=== PATIENT | female | born 1965 | race African-American/Black ===

== ENCOUNTER 2016-09-12 05:53 | Inpatient (IN) | payer OTHER ==
[2016-09-11 13:30] LABS: BASOPHILS # (AUTO) 0.2 K/uL (0.00-0.22); EOSINOPHILS # (AUTO) 0.1 K/uL (0-0.4); HEMOGLOBIN 14.1 g/dL (12.0-16.0); RED CELL DISTRIBUTION WIDTH 12.1 % (11.6-13.7)
[2016-09-11 13:33] LABS: BASOPHILS % (AUTO) 3.6 % (0.0-2.0); EOSINOPHILS % (AUTO) 1.2 % (0.0-4.0); HEMATOCRIT 45.1 % (36-48); LYMPHOCYTES # (AUTO) 2.2 K/uL (2.5-16.5); LYMPHOCYTES % (AUTO) 39.2 % (20.5-51.1); MEAN CORPUSCULAR HEMOGLOBIN 26 pg (27-31); MEAN CORPUSCULAR HGB CONC 31 g/dL (33-37); MEAN CORPUSCULAR VOLUME 85 fL (80-94); MONOCYTES # (AUTO) 0.5 K/uL (0.8-1.0); MONOCYTES % (AUTO) 8.2 % (1.7-9.3); NEUTROPHILS # (AUTO) 2.6 K/uL (1.8-7.7); NEUTROPHILS % (AUTO) 47.8 % (42.2-75.2); PLATELET COUNT (AUTO) 267 K/uL (140-450); RED BLOOD CELL COUNT(AUTO) 5.34 MIL/uL (4.20-5.40); WHITE BLOOD COUNT (AUTO) 5.6 K/uL (4.8-10.8)
[2016-09-11 14:05] LABS: ANION GAP 11.7 (8-16); CALCIUM 10.2 mg/dL (8.5-10.1); CARBON DIOXIDE 33.5 mmol/L (21-32); CREATININE 1.2 mg/dL (0.6-1.3); POTASSIUM 3.2 mmol/L (3.5-5.1); TOTAL BILIRUBIN 0.4 mg/dL (0.0-1.0); TOTAL PROTEIN, SERUM 8.2 g/dL (6.4-8.2)
[~2016-09-12] VITALS: Ht 170.2 cm; Wt 59.0 kg
[2016-09-12] MEDS ORDERED: CLINDAMYCIN 600 MG in DEXTROSE 5% 50 ML IV SCH (06:15)
[2016-09-12] MEDS ORDERED: SEVOFLURANE 250 ML BTL INH ONE (07:55)
[2016-09-12] MEDS ORDERED: MORPHINE SULFATE 4 MG/ML SYR IM/IVP PRN (07:55)
[2016-09-12] MEDS ORDERED: SUCCINYLCHOLINE CHLORIDE 200 MG/10 ML VIAL IVP ONE (07:55)
[2016-09-12] MEDS ORDERED: PROPOFOL 200 MG/20 ML VIAL IV ONE (07:55)
[2016-09-12] MEDS ORDERED: ROCURONIUM 50 MG/5 ML VIAL IV ONE (07:55)
[2016-09-12] MEDS ORDERED: DEXAMETHASONE 4 MG/ML VIAL ONE (07:55)
[2016-09-12] MEDS ORDERED: ONDANSETRON 4 MG/2 ML VIAL ONE (07:55)
[2016-09-12] MEDS ORDERED: BUPIVACAINE-MPF/EPI 0.5% 30 ML VIAL INJ ONE (08:03)
[2016-09-12] MEDS ORDERED: MIDAZOLAM 2 MG/2 ML VIAL ONE (08:05)
[2016-09-12] MEDS ORDERED: fentaNYL 0.05 MG/ML VIAL ONE (08:06)
[2016-09-12] MEDS ORDERED: MEPERIDINE 50 MG/ML SYR ONE (08:06)
--- NOTE | 2016-09-12 08:28 | NUR ---
PATIENT HAS BEEN SCREENED AND CATEGORIZED LOW NUTRITION RISK. PATIENT WILL BE SEEN WITHIN 7 DAYS OF ADMISSION. 09/18/[address]
[2016-09-12] MEDS ORDERED: HYDROmorphone 1 MG/ML AMP IVP PRN (08:30)
[2016-09-12] MEDS ORDERED: ONDANSETRON 4 MG/2 ML VIAL IVP PRN (08:30)
[2016-09-12] MEDS ORDERED: diphenhydrAMINE 50 MG/ML VIAL IVP PRN (08:30)
[2016-09-12] MEDS ORDERED: THROMBIN KIT 20 MU VIAL TP ONE (08:50)
[2016-09-12] MEDS: MEPERIDINE 25 MG/ML SYR IVP PRN ×2 (09:30→09:40)
[2016-09-12] MEDS ORDERED: MEPERIDINE 25 MG/ML SYR ONE ×2 (09:36→09:50)
[2016-09-12 10:25] VITALS: BP 120/76
--- NOTE | 2016-09-12 10:25 | NUR ---
PATIENT ARRIVED ONTO UNIT AFTER HAVING PROCEDURE DONE BY DR Kami BURNETTE AND IS DROWSY. CAM CATHETER IS NOTED WITH RED URINE. IV NOTED ON THE L H WITH IVF'S INFUSING WELL. WHEN ASKED IF SHE WAS IN PAIN PATIENT NODDED AND POINTED TO ABD AND RATES 10/10 SHARP PAIN. WILL MEDICATE WITH PRN PAIN MEDICATION. ABD DRX IS NOTED IN THE LOWER ABD AND IS CLEAN DRY AND INTACT. PATIENT IS AAOX4 AND SHOWS NO S/S OF DISTRESS ON ROOM AIR. MOTHER IS AT BEDSIDE. THE PATIENT AND MOTHER WERE EDUCATED ON THE POC FOR TODAY, CALL LIGHT, RAPID RESPONSE AND VERBALIZED UNDERSTANDING.
--- NOTE | 2016-09-12 10:30 | NUR ---
SPOKE WITH PACU NURSE RON ABOUT POTASSIUM OF 3.2 ON 09/11/16 AND SHE STATES [facility] LAB VALUES FOR POTASSIUM ARE 4.0. LABS FROM [facility] ARE IN CHART.
[2016-09-12] MEDS: LACTATED RINGERS 1,000 ML IV SCH ×2 (11:34→16:46)
--- NOTE | 2016-09-12 11:34 | NUR ---
ADMINISTERED MORPHINE 4 MG IVP FOR PAIN OF 10/10 ABD PAIN AT INCISION SITE. WILL REASSESS IN 30 MIN.
--- NOTE | 2016-09-12 12:04 | NUR ---
PATIENT STATES 9/10 PAIN AT INCISION SITE. PATIENT STATES IT ONLY HELPED A LITTLE BIT. WILL CALL DR. BURNETTE FOR NEW ORDERS OF PRN PAIN MEDICATION.
--- NOTE | 2016-09-12 12:05 | NUR ---
RECEIVED ORDERS OF DILAUDID 1 MG IVP FOR SEVERE PAIN. WILL FOLLOW THROUGH WITH ORDERS.
--- NOTE | 2016-09-12 14:06 | NUR ---
FAXED INITIAL REVIEW TO [facility] [phone] PHONE JORGE [phone]
[2016-09-12 15:27] VITALS: BP 136/80
[2016-09-12] MEDS: HYDROmorphone 1 MG/ML AMP IVP PRN ×3 (15:30→23:11)
--- NOTE | 2016-09-12 15:30 | NUR ---
ADMINISTERED DILAUDID 1 MG IVP FOR 7/10 ABD PAIN AT INCISION SITE. WILL REASSESS IN 30 MIN.
--- NOTE | 2016-09-12 16:00 | NUR ---
PATIENT DENIES PAIN. PATIENT CAM CATHETER HAS MINIMAL DRAINAGE OF RED URINE 50CC'S. DISCONTINUED CAM CATHETER. PATIENT AMB TO RR WITH ASSISTANCE; HOWEVER WAS UNABLE TO VOID. PATIENT IS BACK IN BED AND SHOWS NO S/S OF DISTRESS ON ROOM AIR.
--- NOTE | 2016-09-12 16:30 | NUR ---
SPOKE WITH DR BURNETTE AND ORDERED TO REINSERT CAM CATHETER. WILL FOLLOW THROUGH WITH ORDERS.
--- NOTE | 2016-09-12 17:35 | NUR ---
REINSERTED CAM CATHETER. MINIMAL BLOOD TINGED URINE DRAINED. PATIENT TOLERATED ACTIVITY WELL. WILL CONTINUE TO MONITOR.
--- NOTE | 2016-09-12 18:45 | NUR ---
PATIENT IS C/O PAIN AND PRESSURE AT ABD SITE. PATIENT STATES "I HAVE NOT BEEN ABLE TO URINATE WELL SINCE BEFORE SURGERY." WHEN ASKED IF DR Kami BURNETTE WAS AWARE SHE SAID " YES, I TOLD HIM." THERE IS STILL MINIMAL DRAINAGE IN CAM CATHETER AND NO SIGNIFICANT AMOUNT OF URINE IN BAG. BANG HEIN WAS ASKED TO ASSESS CAM CATHETER. CAM CATHETER WAS ASSESSED BY BANG HEIN RN. CAM IS IN URETHRA HOWEVER BANG CORTEZ DECIDED OKAY TO DISCONTINUE CAM CATHETER. CAM WAS DISCONTINUED. WILL INSERT NEW ONE.
--- NOTE | 2016-09-12 19:54 | NUR ---
PATIENT WAS GIVEN DILAUDID 1 MG IVP FOR 10/10 PAIN. NEW CAM CATHETER WAS INSERTED AND ASSESSED BY BANG CORTEZ. BLADDER SCAN WAS ALSO USED TO ASSESS IF THERE WAS ANY RETAINING URINE. BLADDER SCAN SHOWED 15 ML ONLY. BANG CORTEZ AND ELGIN RN AWARE OF PATIENTS SYMPTOMS AND LACK OF DRAINING OF URINE. ELGIN NIGHT NURSE AWARE AND WILL CALL DR Kami BURNETTE FOR ORDERS REGARDING LACK OF URINE IN CAM CATHETER. PATIENT ALSO STATES NAUSEA, ACID REFLUX, AND NOT BEING ABLE TO PASS GAS. ELGIN SUAREZ IS AWARE. PATIENT REPORT WAS GIVEN AT BEDSIDE. ELGIN IS TO FOLLOW UP WITH CONTINUITY OF CARE.
--- NOTE | 2016-09-12 19:55 | NUR ---
RECD. RESTING IN BED, AWAKE, A/OX4. RESPIRATION EVEN AND UNLABORED. IV OF LR AT 100 ML/HR INFUSING, LEFT AC G20. INCISION IN THE LOWER ABDOMEN COVERED WITH DRESSING, DRY AND INTACT. F/C DRAINING SMALL AMOUNT OF LIGHT REDDISH URINE. WILL INFORM DR. BURNETTE REGARDING DECREASED URINE OUTPUT. ON BILATERAL LEG SEQUENTIALS. PAIN IN THE ABDOMEN, 02/20. WILL CONTINUE TO MONITOR AND WILL MEDICATE ORDERED.
[2016-09-12 20:00] VITALS: BP 144/83
--- NOTE | 2016-09-12 20:00 | NUR ---
Patient's Plan of Care was discussed and reviewed with JAVA WEB ENGINEER: ELGIN Chamberlain
--- NOTE | 2016-09-12 20:20 | NUR ---
SPOKE WITH DR. Lewis BURNETTE, REGARDING PATIENT PROBLEM, ORDERED INCREASE IV TO 300 ML/HR FOR 3 HOURS AND CONTINUE TO MONITOR URINE OUTPUT, MAY DO BLADDER IRRIGATION.
--- NOTE | 2016-09-12 20:25 | NUR ---
BLADDER IRRIGATION WITH CHARGE NURSE SOCORRO DONE, WILL OBSERVE. MOTHER AT THE BEDSIDE.
--- NOTE | 2016-09-12 21:50 | NUR ---
COMPLAINT OF FEELING LIKE ACID REFLUX AND UNABLE TO PASSED GAS, WILL CALL .
[2016-09-12] MEDS: METOCLOPRAMIDE 10 MG/2 ML INJ VIAL IVP PRN (23:10)
[2016-09-12] MEDS: SIMETHICONE 80 MG TAB.CHEW PO PRN (23:27)
--- NOTE | 2016-09-12 23:30 | NUR ---
FLUID BOLUS FINISHED. BLOOD TINGE UA IN THE F/C BAG APPROXIMATELY 150 ML. WILL CONTINUE TO MONITOR FOR OUTPUT. CHARGE NURSE AWARE.
[2016-09-13] VITALS: BP 148/82
--- NOTE | 2016-09-13 | NUR ---
SLEEPING COMFORTABLY IN BED.
[2016-09-13] MEDS: LACTATED RINGERS 1,000 ML IV SCH ×4 (01:11→23:04)
--- NOTE | 2016-09-13 01:30 | NUR ---
COMPLAINT OF BACK PAIN. REPOSITIONED IN BED WITH PILLOWS. FEES BETTER.
[2016-09-13 03:56] VITALS: BP 147/81
[2016-09-13] MEDS: HYDROmorphone 1 MG/ML AMP IVP PRN ×4 (03:59→20:09)
--- NOTE | 2016-09-13 05:13 | NUR ---
EMPTY F/C BAG, ABLE TO OBTAINED 125 ML OF DARK PINKISH URINE. WILL CONTINUE TO MONITOR UA OUTPUT.
--- NOTE | 2016-09-13 07:10 | NUR ---
SPOKE WITH DR. Lewis BURNETTE REGARDING PATIENT MINIMAL OUTPUT FOR THE SHIFT. ORDERED IV LASIX. WILL SEE PATIENT TODAY.
--- NOTE | 2016-09-13 07:15 | NUR ---
CONDITION REMAIN STABLE. ENDORSED TO AM NURSE FOR CONTINUITY OF CARE.
--- NOTE | 2016-09-13 07:16 | NUR ---
PT AWAKE AND ALERT, NO SIGNS OF ACUTE DISTRESS. PT ON ROOM AIR. BOWEL SOUNDS ACTIVE IN ALL 4 QUADRANTS. ABDOMINAL INCISION COVERED WITH DRY DRESSING. AMBULATORY WITH BRP. IV PATENT AND ASYMPTOMATIC. PATIENT DENIES PAIN AT THIS TIME. RE-ORIENTED TO HOSPITAL AND TO UNIT, PT VERBALIZED UNDERSTANDING. BED IN LOW POSITION WITH BILATERAL HALF SIDE RAILS UP, CALL LIGHT WITHIN REACH. WILL CONTINUE TO MONITOR.
[2016-09-13 07:39] LABS: HEMOGLOBIN 10.6 g/dL (12.0-16.0); MEAN CORPUSCULAR HEMOGLOBIN 27 pg (27-31); MEAN CORPUSCULAR HGB CONC 31 g/dL (33-37); MEAN CORPUSCULAR VOLUME 85 fL (80-94); PLATELET COUNT (AUTO) 232 K/uL (140-450); WHITE BLOOD COUNT (AUTO) 11.3 K/uL (4.8-10.8)
[2016-09-13] MEDS ORDERED: FUROSEMIDE 40 MG/4 ML VIAL IVP SCH (07:45)
[2016-09-13 08:00] VITALS: BP 147/85
[2016-09-13 08:04] LABS: BAND % (MANUAL) 5 % (0-8); LYMPHOCYTES % (MANUAL) 14 % (20-46); MONOCYTES % (MANUAL) 4 % (5-12); NEUTROPHILS % (MANUAL) 77 (43-65)
--- NOTE | 2016-09-13 08:15 | NUR ---
DR Kami BURNETTE IN TO SEE PATIENT. GAVE TO ORDER FOR 3 DOSES OF ANCEF 2GM Q 8H IV AND TO REMOVE DRESSING. NOTED, WILL CARRY OUT.
--- NOTE | 2016-09-13 08:38 | NUR ---
PATIENT HAS ALLERGY TO PCN DISCOVERED AT AGE 25 WITH REACTION OF HIVES, NOSE AND FACIAL SWELLING. CALLED DR BURNETTE ON CELL, HOWEVER DID NOT ANSWER. PAGED DR BURNETTE, WILL WAIT FOR CALL BACK.
--- NOTE | 2016-09-13 09:54 | NUR ---
PT C/O PRESSURE AND BURNING IN ABDOMEN 11/20, GAVE DILAUDID PRN IV PUSH AND PAGED DR Lewis BURNETTE. NO ADDITIONAL OUTPUT FROM CAM AT THIS TIME, WILL CONTINUE TO MONITOR.
--- NOTE | 2016-09-13 10:20 | NUR ---
WALKED AROUND THE UNIT WITH PATIENT, CHANGED GOWN AND REMOVED DRESSING ORDERED BY DR BURNETTE. PT STATED THAT SHE IS FEELING BETTER. WILL CONTINUE TO MONITOR.
--- NOTE | 2016-09-13 10:50 | NUR ---
PATIENT HAS NEW URINE OUTPUT OF 150ML. URINE IS VARELA COLORED. PATIENT STATES THAT SHE IS FEELING BETTER. WILL CONTINUE TO MONITOR.
--- NOTE | 2016-09-13 11:41 | NUR ---
PATIENT LEFT AWAKE AND ALERT, NO SIGNS OF ACUTE DISTRESS. PATIENT LEFT UNIT TO GO TO XRAY FOR CYSTOGRAM.
--- NOTE | 2016-09-13 12:11 | NUR ---
PATIENT BACK TO UNIT FROM XRAY. AWAKE AND ALERT, NO SIGNS OF ACUTE DISTRESS. WILL CONTINUE TO MONITOR.
--- NOTE | 2016-09-13 12:47 | NUR ---
CM NOTE CONCURRENT REVIEW FAXED TO [facility] / FAX# [phone], ATTN: [id number]
[2016-09-13] MEDS: CLINDAMYCIN 900 MG in DEXTROSE 5% 100 ML IV SCH ×2 (13:56→20:27)
--- NOTE | 2016-09-13 14:02 | NUR ---
PT SLEEPING, NO SIGNS OF ACUTE DISTRESS. URINE OUTPUT OF 100ML MORE. URINE IS CLEAR YELLOW. WILL CONTINUE TO MONITOR.
[2016-09-13 16:00] VITALS: BP 136/73
--- NOTE | 2016-09-13 17:15 | NUR ---
WALKED AROUND UNIT WITH PATIENT APPROXIMATELY 100FT, PT TOLERATED WELL. WILL CONTINUE TO MONITOR.
--- NOTE | 2016-09-13 18:10 | NUR ---
URINE OUTPUT 350ML MORE. URINE IS CLEAR AND A FRONT DESK RED COLOR THAN THIS MORNING. WILL CONTINUE TO MONITOR.
--- NOTE | 2016-09-13 19:20 | NUR ---
RECEIVED REPORT AT BEDSIDE. PATIENT WAS AWAKE, ALERT AND ORIENTED. NO S/SX OF DISTRESS NOTED. ABDOMINAL INCISION NOTED, SHANDRA CLEAN, DRY AND INTACT. NO DISCHARGE NOTED. CAM CATHETER IN PLACE, DRAINING VARELA RED URINE. IV LINE NOTED ON LEFT HAND. IV INFUSING WELL. BED IN LOWERED POSITION AND CALL LIGHT WITHIN REACH.
--- NOTE | 2016-09-13 19:24 | NUR ---
PATIENT AWAKE AND ALERT, NO SIGNS OF ACUTE DISTRESS. ENDORSED TO SAMM CORTEZ, FOR CONTINUITY OF CARE.
[2016-09-13 20:00] VITALS: BP 135/84
--- NOTE | 2016-09-13 20:30 | NUR ---
TEMP RECHECKED USING TEMPORAL THERMOMETER. TEMP 98.5
[2016-09-13] MEDS: SIMETHICONE 80 MG TAB.CHEW PO PRN (22:58)
[2016-09-13] MEDS: ONDANSETRON 4 MG/2 ML VIAL IVP PRN (23:04)
[2016-09-14] VITALS: BP 152/86
[2016-09-14] MEDS: HYDROmorphone 1 MG/ML AMP IVP PRN (02:05)
[2016-09-14] MEDS: CLINDAMYCIN 900 MG in DEXTROSE 5% 100 ML IV SCH (05:04)
--- NOTE | 2016-09-14 05:22 | NUR ---
PATIENT ASLEEP. NO S/S OF DISTRESS NOTED
--- NOTE | 2016-09-14 05:42 | NUR ---
PATIENT SEEN BY DR BURNETTE
[2016-09-14] MEDS: METOCLOPRAMIDE 10 MG/2 ML INJ VIAL IVP PRN (05:51)
--- NOTE | 2016-09-14 07:27 | NUR ---
PATIENT REPORT GIVEN AT BEDSIDE. PATIENT ENDORSED IN STABLE CONDITION
--- NOTE | 2016-09-14 07:35 | NUR ---
RECEIVED REPORT FROM DIEGO MCCOLLUM. PT IS AWAKE, SITTING UP IN BED, A/OX4, AMBULATES WITH ASSIST, IV IS ON THE LT HAND, PATENT, INTACT, FLUSHING WELL, CAM CATHETER IS IN PLACE, 300 ML URINE (HEMATURIA) NOTED IN CAM BAG AT THIS TIME, NO S/S OF RESPIRATORY DISTRESS OR DISCOMFORT NOTED, SAFETY/FALL PRECAUTIONS ARE IN PLACE, CALL LIGHT IS WITHIN REACH, WILL CONTINUE TO MONITOR.
[2016-09-14 08:00] VITALS: BP 144/80
--- NOTE | 2016-09-14 09:35 | NUR ---
PT SLEEPING IN BED AT THIS TIME, CALL LIGHT WITHIN REACH.
--- NOTE | 2016-09-14 09:45 | NUR ---
PATIENT STATED SHE DID NOT WANT TO BE HOOKED ON TO THE IV FLUIDS.
[2016-09-14] MEDS: LACTATED RINGERS 1,000 ML IV SCH ×2 (11:02→18:48)
[2016-09-14] MEDS: ACETAMINOPHEN/CODEINE 300/30MG 1 TAB PO PRN ×2 (11:40→21:04)
--- NOTE | 2016-09-14 11:42 | NUR ---
PT STATED SHE WAS FEELING WARM AND MIGHT BE HAVING A FEVER. TEMP CHECKED IT WAS 99.1. GAVE PT TYLENOL, WILL USE COOLING MEASURES.
--- NOTE | 2016-09-14 13:00 | NUR ---
PATIENT RESTING IN BED TALKING ON HER CELL PHONE, CALL LIGHT WITHIN REACH.
--- NOTE | 2016-09-14 13:59 | NUR ---
FAXED CONCURRENT REVIEW TO [facility] [phone] PHONE JORGE [phone]
--- NOTE | 2016-09-14 15:35 | NUR ---
PATIENT IS RESTING IN BED, PATIENT'S MOTHER IS AT PATIENT'S BEDSIDE, CALL LIGHT WITHIN REACH.
[2016-09-14 16:00] VITALS: BP 134/71
--- NOTE | 2016-09-14 16:01 | NUR ---
PAGED DR. BURNETTE TO ASK HIM IF COULD CHANGE THE DIET ORDER AND TO ASK HIM IF HE WOULD LIKE THE CAM REMOVED.
--- NOTE | 2016-09-14 18:00 | NUR ---
PATIENT RESTING IN BED AT THIS TIME, CALL LIGHT WITHIN REACH.
--- NOTE | 2016-09-14 19:20 | NUR ---
ENDORSED PT TO DIEGO QUIJANO. FOR CONTINUITY OF CARE. PT STABLE AT THIS TIME.
--- NOTE | 2016-09-14 19:30 | NUR ---
RECEIVED REPORT FROM AM NURSE. PT RESTING IN BED, AOX4, ABLE TO VERBALIZE NEEDS. PT C/O ABD PAIN, SEE PAIN ASSESSMENT, WILL MEDICATE ORDERED. PT DENIES NAUSEA AT THIS TIME, STATED LAST TIME SHE HAD NAUSEA WAS YESTERDAY. PT ABLE TO TOLERATE CLEAR LIQUID DIET, WILL NOTIFY MD. PT STATED SHE HAS BEEN ABLE TO AMBULATE, DENIES GAS OR BM. PT C/O FEELING GAS TRAPPED AND BURPING, WILL MEDICATE PRN. PT C/O PAIN AT IV SITE WHILE FLUSHING, BUT IV SITE IS PATENT. PT REFUSED MAINTENANCE FLUID LACTATED RINGERS, WILL NOTIFY MD. DISCUSSED AND REVIEWED PLAN OF CARE WITH PT. PT VERBALIZED UNDERSTANDING. SAFETY MEASURES ENSURED. CALL LIGHT WITHIN REACH. WILL CONTINUE TO MONITOR. Addendum: 09/14/16 at 2257 by Kamar Wall RN TO ADD: ABD INCISION NOTED ASYMPTOMATIC, SHANDRA IN PLACE, NO REDNESS, BLEEDING, EDEMA, DISCHARGE OR APPROXIMATION.
[2016-09-14 20:00] VITALS: BP 149/79
--- NOTE | 2016-09-14 20:50 | NUR ---
CALLED DR BESSIE BURNETTE, DISCUSSED PT DX AND S/P HYSTERECTOMY 09/12/16, DISCUSSED THAT PT IS CURRENTLY ON CLEAR LIQUID DIET WITH LAST NAUSEA YESTERDAY. ALSO MADE MD AWARE THAT PT IS REFUSING HER MAINTENANCE FLUIDS OF LACTATED RINGERS. ASKED MD IF IT IS OK TO ADVANCE TO REGULAR DIET AND DISCONTINUE MAINTENANCE FLUIDS. STATED "THAT'S FINE." READ BACK ORDERS, WILL CARRY OUT.
[2016-09-14] MEDS: SIMETHICONE 80 MG TAB.CHEW PO PRN (21:04)
--- NOTE | 2016-09-14 21:08 | NUR ---
PT C/O PAIN. SEE PAIN ASSESSMENT. PT'S TEMP ALSO 99.9, COOLING MEASURES ENSURED. ADMINISTERED TYLENOL #3 FOR PAIN AND TEMP PER PT REQUEST. WILL MONITOR TEMP. PT C/O FEELING GAS TRAPPED AND BURPING, ADMINISTERED SIMETICONE ORDERED. PT TOLERATED MEDS WELL. ALL NEEDS MET. SAFETY MEASURES ENSURED. CALL LIGHT WITHIN REACH. WILL CONTINUE TO MONITOR.
[2016-09-14] MEDS: ONDANSETRON 4 MG/2 ML VIAL IVP PRN (21:30)
--- NOTE | 2016-09-14 21:36 | NUR ---
PROVIDED PT WITH TURKEY SANDWICH PT'S DIET IS ADVANCED TO REGULAR DIET, PT TOOK ONE BITE AND PT C/O NAUSEA. ADMINISTERED ZOFRAN PRN ORDERED. WILL MONITOR. PT ENCOURAGED TO AMBULATE, PT STATED "NOT TONIGHT. I WAS ALREADY WALKING THIS MORNING AND AFTERNOON." WILL CONTINUE TO MONITOR.
--- NOTE | 2016-09-14 22:45 | NUR ---
PT C/O PAIN AT IV SITE, IV SITE IS LEAKY AND MET WITH RESISTANCE WHEN FLUSHED. IV ACCESS REMOVED, CANNULA INTACT. PT TOLERATED WELL. ATTEMPTED TO INSERT NEW IV TWICE, UNSUCCESSFUL. WILL ATTEMPT TO INSERT AGAIN LATER.
[2016-09-15] VITALS: BP 135/72
[2016-09-15] MEDS: HYDROmorphone 1 MG/ML AMP IVP PRN (00:22)
--- NOTE | 2016-09-15 00:22 | NUR ---
ER CHARGE NURSE AT BEDSIDE INSERTED NEW IV 22G AT RIGHT AC. PT TOLERATED WELL. PT C/O BREAKTHROUGH ABD PAIN. SEE PAIN ASSESSMENT. ADMINISTERED DILAUDID ORDERED. PT TOLERATED WELL. ALL NEEDS MET. SAFETY MEASURES ENSURED. CALL LIGHT WITHIN REACH. WILL CONTINUE TO MONITOR.
[2016-09-15] MEDS: ACETAMINOPHEN/CODEINE 300/30MG 1 TAB PO PRN ×3 (04:48→20:28)
--- NOTE | 2016-09-15 04:52 | NUR ---
PT C/O PAIN. SEE PAIN ASSESSMENT. ADMINISTERED TYLENOL #3 PER PT REQUEST. PT TOLERATED MED WELL. PT TEMP RECHECKED, 98.9; ALL NEEDS MET. SAFETY MEASURES ENSURED. CALL LIGHT WITHIN. REACH.
--- NOTE | 2016-09-15 07:21 | NUR ---
DR BURNETTE IN TO SEE PT. DR BURNETTE GAVE VERBAL ORDERS TO DISCONTINUE CAM CATH AND DISCHARGE HOME. ORDERS PUT IN.
--- NOTE | 2016-09-15 07:22 | NUR ---
ENDORSED PLAN OF CARE TO AM NURSE. CONDITION STABLE.
--- NOTE | 2016-09-15 07:23 | NUR ---
RECEIVED PT FROM HIGH SCHOOL MATH TUTOR NURSE AT BEDSIDE. PT IS A&OX4. PT HAS IV ON R AC 22 G TKO AT THIS TIME. NO DISTRESS NOTED IN PT. PT C/O PAIN, WILL MEDICATE WHEN PAIN MED IS DUE. CALL LIGHT WITHIN REACH. WILL CONTINUE TO MONITOR.
--- NOTE | 2016-09-15 07:51 | NUR ---
DC CAM CATH. PT TOLERATED WELL. BED IS WET, HAD PT SIT IN CHAIR, WILL CHANGE BED. CALL LIGHT WITHIN REACH. WILL CONTINUE TO MONITOR.
[2016-09-15 08:00] VITALS: BP 138/75
--- NOTE | 2016-09-15 08:30 | NUR ---
PROVIDED PT WITH PRUNE JUICE TO HELP RELEASE GAS. PT TOOK A WALK IN HALLWAY, TOLERATED WELL. CALL LIGHT WITHIN REACH. WILL CONTINUE TO MONITOR.
--- NOTE | 2016-09-15 09:00 | NUR ---
COVERED PT'S INCISIONS WITH ABD PAD AND APPLIED ABD BINDER TO HELP PT WITH RELEASING GAS. CALL LIGHT WITHIN REACH. WILL CONTINUE TO MONITOR.
[2016-09-15] MEDS: SIMETHICONE 80 MG TAB.CHEW PO PRN ×2 (09:25→20:28)
[2016-09-15] MEDS: ONDANSETRON 4 MG/2 ML VIAL IVP PRN (10:21)
--- NOTE | 2016-09-15 11:30 | NUR ---
PT IS RESTING IN BED. NO DISTRESS NOTED. CALL LIGHT WITHIN REACH. WILL CONTINUE TO MONITOR.
--- NOTE | 2016-09-15 13:00 | NUR ---
PT STILL C/O PAIN IN ABD AREA, UNABLE TO PASS GAS. PT STATED SHE IS NOT READY TO EAT LUNCH YET. ENCOURAGED WATER INTAKE AND PRUNE JUICE INTAKE. PT VERBALIZED UNDERSTANDING.
--- NOTE | 2016-09-15 15:00 | NUR ---
PT STATED SHE IS STILL UNABLE TO PASS GAS. ENCOURAGED WATER INTAKE AND PRUNE JUICE. PT VERBALIZED UNDERSTANDING. PT REFUSED TO AMBULATE AGAIN DUE TO NO ENERGY. CALL LIGHT WITHIN REACH. WILL CONTINUE TO MONITOR.
--- NOTE | 2016-09-15 15:30 | NUR ---
SPOKE TO DR. BURNETTE REGARDING PT'S INABILITY TO VOID. DR. BURNETTE ORDERED FOR CAM TO BE PUT BACK IN AND MED. DR. BURNETTE IS HOLDING HER DISCHARGE. WILL CARRY OUT ORDER.
[2016-09-15 16:00] VITALS: BP 159/87
[2016-09-15] MEDS ORDERED: BETHANECHOL 25 MG TAB PO SCH (16:05)
--- NOTE | 2016-09-15 16:30 | NUR ---
PT'S MOTHER VISITED. UPDATED MOTHER ON PLAN OF CARE. CALL LIGHT WITHIN REACH. WILL CONTINUE TO MONITOR.
--- NOTE | 2016-09-15 19:18 | NUR ---
ENDORSED PT TO DUST COLLECTOR ATTENDANT NURSE AT BEDSIDE. PT IN STABLE CONDITION.
[2016-09-15 20:00] VITALS: BP 155/88
--- NOTE | 2016-09-15 20:00 | NUR ---
Patient's Plan of Care was discussed and reviewed with DECORATOR STORE: JACLYN Patterson
--- NOTE | 2016-09-15 22:50 | NUR ---
PATIENT IS RESTING IN BED SLEEPING ON AND OFF I CONTINUE TO ENCOURAGE THE PATIENT TO AMBULATE AND ALSO TO CONTINUE TO USE THE INCENTIVE SPIROMETER FOR BREATHING EXERCISES PATIENT VERBALIZES UNDERSTANDING BUT PATIENT STATES,"I ALREADY DID DURING THE DAY I WANT TO REST RIGHT NOW."WILL CONTINUE TO MONITOR.CALL LIGHT WITHIN REACH.
[2016-09-16 00:25] VITALS: BP 133/80
--- NOTE | 2016-09-16 00:35 | NUR ---
PATIENT IS CURRENTLY SLEEPING IN BED PATIENT WAS AWAKENED FOR VITAL SIGNS. PATIENT WAS GIVEN FRESH ICE WATER PER PATIENT'S REQUEST BY REFUGIO GRIJALVA AND CAM CATHETER HAS BEEN EMPTIED EARLIER BY REFUGIO STARKS. PATIENT SLEEPING ON AND OFF WILL CONTINUE TO MONITOR.CALL LIGHT WITHIN REACH PATIENT ALSO HAS MY PHONE EXTENSION TO CALL ME PATIENT VERBALIZES UNDERSTANDING.
[2016-09-16] MEDS: ACETAMINOPHEN/CODEINE 300/30MG 1 TAB PO PRN ×5 (00:45→18:27)
--- NOTE | 2016-09-16 02:20 | NUR ---
PATIENT SLEEPING IN BED NO DISTRESS NO PAIN OR DISCOMFORT.CAM CATHETER DRAINING TO GRAVITY.WILL CONTINUE TO MONITOR.
--- NOTE | 2016-09-16 03:22 | NUR ---
PATIENT ENDORSED TO DIEGO NINA SHE WILL RESUME CARE OF THE PATIENT.
--- NOTE | 2016-09-16 03:30 | NUR ---
RECEIVED REPORT OF PT IN STABLE CONDITION.NO S/S OF ANY DISTRESS NOTED NOW.
--- NOTE | 2016-09-16 06:24 | NUR ---
SLEPT WELL.NO C/O PAIN AT PRESENT TIME.SHANDRA PATENT ON ABDOMEN.
--- NOTE | 2016-09-16 07:35 | NUR ---
REPORT RECEIVED FROM WASH RACK OPERATOR NURSE SAPNA, PT AWAKE ALERT RESTING QUIETLY IN BED, RESP EVEN UNLABORED ON RA IN NAD, SKIN WARM DRY COLOR WNL, SPEAKS CLEARLY, STATES PAIN IS BETTER AFTER TYLENOL #3 GIVEN BY PREVIOUS NURSE, ABD SOFT, + BS, PLAN OF CARE REVIEWED, PT VERBALIZED FULL UNDERSTANDING, CALL MARI WITHIN REACH, SIDE RAILS UP, WILL CONTINUE TO MONITOR, CRAMBBERY JUICE AND HOT TEA GIVEN REQUESTED BY PT.
[2016-09-16 08:00] VITALS: BP 146/76
--- NOTE | 2016-09-16 10:05 | NUR ---
CAM CATHETER REMOVED. PER PROTOCOL, 10 CC REMOVED FROM THE BALLOON. CATH TIP INTACT. PT TOLERATED WELL. CLEAR, LIGHT URINE. 1000ML DRAINED. PT TO NOTIFY STAFF WHEN SHE VOIDS. PT VERBALIZED UNDERSTANDING. WILL CONTINUE MONITOR.
--- NOTE | 2016-09-16 12:00 | NUR ---
PT UP OUT OF BED WITH MINIMAL ASSIST TO BATHROOM, SAT ON TOILET FOR AWHILE WITH WATER RUNNING AND WARM WATER TO PERINEUM BUT UNABLE TO VOID AT THIS TIME.
--- NOTE | 2016-09-16 12:30 | NUR ---
PT UP AMBULATING WELL WITH STEADY GAIT, MINIMAL ASSIST NEEDED FOR GETTING UP ONLY. MERE WELL, PT RETURNED BACK TO CHAIR FOR LUNCH.
[2016-09-16] MEDS: SIMETHICONE 80 MG TAB.CHEW PO PRN ×2 (13:46→22:00)
--- NOTE | 2016-09-16 13:46 | NUR ---
PT C/O LOWER ABD PAIN "GAS PAIN", ABD ROUND, SOFT, TNDER TO PALP, PT TRANSFERED BACK FROM CHAIR TO BED WITHOUT PROBELM, PT ENCOURAGED TO WALK AND MOVE AROUND BUT REQUESTS PAIN MED AT THIS TIME, SYMETHICON AND T#3 GIVEN AT THIS TIME, WILL CONTINUE TO MONITOR.
--- NOTE | 2016-09-16 15:50 | NUR ---
PT UP TO BATHROOM UNABLE TO VOICE DESPITE MULTIPLE ATTEMPT TODAY, PT STATES SHE WALKED AROUND IN THE ROOM BACK AND FORTH, WILL PERFORM BLADDER SCAN.
[2016-09-16 16:00] VITALS: BP 142/78
--- NOTE | 2016-09-16 16:55 | NUR ---
BLADDER SCAN DONE BY CHUCKY CORTEZ, 258ML URINE IN BLADDER. WILL NOTIFY DR BURNETTE
--- NOTE | 2016-09-16 17:15 | NUR ---
DR THOMAS AND NOTIFIED THAT PT HAS NOT BEEN ABLE TO URINATE SINCE CAM REMOBAL THIS AM, RE INSERT CAM CATH AND DR BURNETTE TO EVALUATE PT IN AM. PT AND HER MOTHER NOTIFIED OF PLAN, THEY ARE AGREEABLE, PT REQUESTS CHARGE NURSE CHUCKY TO INSERT CAM, CHUCKY NOTIFIED.
--- NOTE | 2016-09-16 18:25 | NUR ---
CAM CATH PLACED AGAIN BY DIEGO LOCKE. PT MERE WELL.
--- NOTE | 2016-09-16 19:26 | NUR ---
PATIENT IS CURRENTLY SLEEPING IN BED WATCHING TV NO COMPLAINS OF PAIN OR DISCOMFORT NOTED AT THIS TIME.
--- NOTE | 2016-09-16 19:26 | NUR ---
REPORT GIVEN TO SHOT CORE DRILL OPERATOR HELPER NURSE. PT REMAINS STABLE
[2016-09-16 20:00] VITALS: BP 149/77
--- NOTE | 2016-09-16 20:00 | NUR ---
I EDUCATED THE PATIENT AND ALSO ENCOURAGED THE PATIENT TO USE THE INCENTIVE SPIROMETER TO PREVENT PNA OR BREATHING COMPLICATIONS PATIENT VERBALIZES UNDERSTANDING. EDUATION GIVEN ON THE IMPORTANCE TO AMBULATE TO REDUCE POST-OP COMPLICATION.PATIENT VERBALIZES UNDERSTANDING BUT REINFORCEMENT IS NEEDED.
--- NOTE | 2016-09-16 21:25 | NUR ---
PATIENT CALLED AND I CAME TO ANSWER HER CALL PATIENT REQUESTED FOR HER BED UNDERPAD TO BE CHANGED PATIENT STATES,"I HAD AN ACCIDENT." BED PAD HAS BEEN CHANGED.PATIENT SITTING IN A CHAIR BESIDE HER BED FACIAL GRIMACING NOTED SO I ASKED IF SHE WANTS PAIN MEDICATION DILAUDID IV BECAUSE HER PAIN MEDICATION TYLENOL#3 ISN'T DUE YET PATIENT REFUSES TO GET IV MEDS AT THIS TIME.PATIENT THEN ASSISTED TO THE BATHROOM PATIENT STATES,"I THINK I WANT TO HAVE A BOWEL MOVEMENT."I ALSO OFFERED PATIENT SOME MYLICON TO HELP REDUCE SOME GAS AND I CONTINUE TO ENCOURAGE AMBULATION.PT STATES."I HAVE BEEN WALKING AND I WALK A LOT UNTIL BY BODY CAN'T TAKE IT ANYMORE."I EXPLAINED TO THE PATIENT TO AMBULATE ONLY WHAT SHE CAN TOLERATE AND I OFFERED MY ASSISTANCE PATIENT VERBALIZES UNDERSTANDING.WILL CONTINUE TO MONITOR CALL LIGHT WITHIN REACH.
--- NOTE | 2016-09-16 21:30 | NUR ---
PATIENT TAKEN TO THE BATHROOM WHILE WAITING OUTSIDE I HEARD PATIENT IS PASSING LOTS OF GAS.PATIENT WAS ABLE TO HAVE A BOWEL MOVEMENT AND WAS ASSISTED BACK IN BED.I OFFERED PAIN MEDICATION DILAUDID IV BECAUSE I CAN SEE PATIENT IS HAVING SEVERE PAIN SHE IS MOANING AND FACIAL GRIMACING NOTED HAS DIFFICULTY GETTING IN BED I ASSISTED THE PATIENT.PATIENT THEN AGREES.PATIENT ALWAYS ENCOURAGED TO USE THE CALL LIGHT AND CONTINUES TO BE INSTRUCTED TO USE THE PHONE TO CALL THE NURSE.PATIENT VERBALIZES UNDERSTANDING BUT NEEDS REINFORCEMENT DOESN'T USE THE CALL LIGHT SOMETIMES. I TOLD THE PATIENT IF SHE WOULD LIKE TO BE MOVED PATIENT CLAIMS THAT NO ONE IS ANSWERING HER CALLS SO I TOLD HER IF SHE WANTS TO MOVE TO ANOTHER ROOM CLOSER TO THE NURSES STATION PATIENT DECLINED PATIENT STATES," I WANT TO STAY HERE DON'T WANT TO BE MOVED ITS QUIET HERE." PORCELAIN BUILDUP ASSISTANTANGEL LUIS NINA OFFERED THE PATIENT ANOTHER ROOM BUT PATIENT REFUSED.BOTH BLUE PHONE NUMBER EXTENSIONS PLACED IN BOARD FOR THE PATIENT TO CALL IF SHE NEEDS ASSISTANCE. PATIENT STATES,"TURN OFF THE LIGHT AND CLOSE THE DOOR." ROUNDS WILL BE MADE.
[2016-09-16] MEDS: HYDROmorphone 1 MG/ML AMP IVP PRN (21:49)
--- NOTE | 2016-09-16 22:00 | NUR ---
I GAVE PATIENT SOME MYLICON TO HELP WITH GAS.PATIENT VERBALIZES UNDERSTANDING. PATIENT HAS ALSO FRESH WATER AND CAM CATHETER WAS EMPTIED EARLIER WELL.WILL CONTINUE TO MONITOR.CALL LIGHT WITHIN REACH.
--- NOTE | 2016-09-16 23:58 | NUR ---
ROUNDS MADE PATIENT IS CURRENTLY ASSISTED TO SIT UP IN BED,PATIENT WANTS TO SIT UP IN BED FOR A SHORT WHILE CALL LIGHT AND PHONE KEPT WITHIN REACH. PATIENT VERBALIZES UNDERSTANDING.VITALS SIGNS TAKEN WILL CONTINUE TO MONITOR AND OFFER ASSISTANCE.
[2016-09-17] VITALS: BP 146/70
--- NOTE | 2016-09-17 00:25 | NUR ---
I ASSISTED THE PATIENT SHE WANTS TO AMBULATE SO I TOOK HER OUTSIDE IN THE HALLWAY AND SHE WALKED HALF THE HALLWAY AND CAME BACK TO THE HER PATIENT ASSISTED AT ALL TIMES. THEN HER UNDERNEATH BED PAD WAS CHANGED AND I ALSO GAVE HER FRESH ICE WATER.PATIENT KEPT COMFORTABLE PILLOW PLACED UNDERNEATH BOTH ARMS.WILL CONTINUE TO MONITOR. CALL LIGHT WITHIN REACH
--- NOTE | 2016-09-17 01:08 | NUR ---
I TOOK PICTURE OF PATIENT LOWER ABDOMEN INCISION WITH PATIENT'S CONSENT AND PLACED IT IN PATIENT'S MEDICAL CHART.
[2016-09-17] MEDS: ACETAMINOPHEN/CODEINE 300/30MG 1 TAB PO PRN ×2 (02:02→13:40)
--- NOTE | 2016-09-17 02:02 | NUR ---
PATIENT WAS ASSISTED BY REFUGIO PEREZ PATIENT CURRENTLY SITTING IN THE CHAIR COMPLAINING OF PAIN TO LOWER ABDOMEN AND LOWER BACK 07/21 PATIENT MEDICATED WITH TYLENOL #3 1 TAP PO ORDERED FOR MODERATE PAIN PATIENT ASSISTED BACK IN BED AND WAS GIVEN WATER CAM CATHETER EMPTIED ABOUT 600ML ORANGE COLOR URINE.WILL CONTINUE TO MONITOR.CALL LIGHT AND PHONE WITHIN REACH.
--- NOTE | 2016-09-17 02:05 | NUR ---
Patient's Plan of Care was discussed and reviewed with COOPERER: JACLYN MOREIRA.
--- NOTE | 2016-09-17 04:40 | NUR ---
PATIENT ASSISTED BACK TO THE BED AND PATIENT COMPLAINS OF SEVERE PAIN TO LOWER ABDOMEN AND LOWER BACK, DIEGO NINA INFORMED SHE WILL MEDICATE THE PATIENT FOR PAIN.
[2016-09-17] MEDS: HYDROmorphone 1 MG/ML AMP IVP PRN ×2 (04:45→09:05)
--- NOTE | 2016-09-17 06:23 | NUR ---
PATIENT STABLE RESTING IN BED IN NO DISTRESS WILL CONTINUE TO MONITOR.CALL LIGHT WITHIN REACH.
--- NOTE | 2016-09-17 07:16 | NUR ---
PATIENT STABLE REPORT ENDORSED TO DIEGO CLARK AT BEDSIDE.
--- NOTE | 2016-09-17 07:25 | NUR ---
PATIENT CALLED ME AND WANTS ME TO TELL MD VARELA IF HE COULD GO AND EXPLAIN TO HER THE REASON WHY SHE ISN'T VOIDING.I INFORMED MD VARELA HE SAID HE WILL TALK WITH THE PATIENT.
--- NOTE | 2016-09-17 07:30 | NUR ---
PATIENT WAS SEEN BY MD AVERY CORTEZ CLARK WILL RESUME CARE.
[2016-09-17 08:00] VITALS: BP 158/81
[2016-09-17] MEDS: SIMETHICONE 80 MG TAB.CHEW PO PRN ×2 (09:05→13:40)
--- NOTE | 2016-09-17 09:13 | NUR ---
ADMINISTERED PAIN MED REQUESTED. DILAUDID 1MG. PT TOLERATED WELL. D/C'D CAM CATH PER MD. PT TOLERATED WELL. DRAINED 1200ML OF CLEAR YELLOW URINE. WILL SEE IF SHE IS ABLE TO URINATE. IF NOT, REPLACE CAM CATH AND D/C TO HOME WITH IT. DR BURNETTE WILL F/U WITH PT OUT PT BASIS. IF SHE URINATES, WHEN SHE GOES HOME, SHE WOULD LIKE A DIAPER.
--- NOTE | 2016-09-17 11:54 | NUR ---
AMBULATING IN THE HALLWAYS. PT TOLERATING WELL.
--- NOTE | 2016-09-17 13:43 | NUR ---
PT STILL UNABLE TO URINATE SINCE THE D/C OF CAM. GOT ORDER TO REINSERT A NEW CAM TO GO HOME WITH. PT TOLERATED WELL. 800ML OF YELLOW URINE. ADMINISTERED PAIN MED AND ANTI GAS MED. PT TOLERATED WELL. WENT OVER THE DISCHARGE INSTRUCTIONS. ANSWERED ALL QUESTIONS. PT VERBALIZED UNDERSTANDING. REMOVED IV, CANNULA INTACT. NO BLEEDING NOTED. REMOVED ID BANDS. PT CALLED FOR HER FAMILY TO PICK HER UP. PER PT, WHEN HER MOM GETS HERE, SHE WILL HAVE HER HELP HER GET DRESSED. WILL LET ME KNOW WHEN SHE IS READY TO GO. WE WILL HAVE WHEEL CHAIR READY TO WHEEL HER OUT. Addendum: 09/17/16 at 1445 by Nicki Armenta RN EDUCATED PT RE. CARE OF CAM CATH. DEMONSTRATED HOW TO DO PERICARE, CAM CARE, AND HOW TO EMPTY, HOW TO SWITCH OUT TO LEG BAG. PT RETURNED DEMONSTRATION AND VERBALIZED UNDERSTANDING.
--- NOTE | 2016-09-17 14:40 | NUR ---
HOSE SEAMER WHEELING PT AND MOM OUT TO THE FRONT OF THE HOSPITAL. PT HAS PERSONAL BELONGINGS WITH HER. PT IS IN STABLE CONDITION. EMPTIED HER CAM BAG, 600ML.
--- NOTE | 2016-09-17 17:08 | NUR ---
FAXED CONCURRENT REVIEW [phone] PHONE JORGE [phone]
[2016-09-18] MEDS ORDERED: ACET-2863 PO (21:59)
== END 2016-09-17 14:40 | disposition home or self-care (01) | DRG 513 ==
LOC: MMU 05:53
PROVIDERS: ADMIT Obstetrics & Gynecology; ATTEND Obstetrics & Gynecology
PROC: 0UTC0ZZ Resection of Cervix, Open Approach (ICD-10-PCS; 2016-09-12)
PROC: 0UT20ZZ Resection of Bilateral Ovaries, Open Approach (ICD-10-PCS; 2016-09-12)
PROC: 0UT70ZZ Resection of Bilateral Fallopian Tubes, Open Approach (ICD-10-PCS; 2016-09-12)
PROC: 0UT90ZZ Resection of Uterus, Open Approach (ICD-10-PCS; principal; 2016-09-12 07:30)
DX: N92.1 Excessive and frequent menstruation with irregular cycle (principal); E83.51 Hypocalcemia; E87.6 Hypokalemia; R10.2 Pelvic and perineal pain; G89.29 Other chronic pain; Z88.0 Allergy status to penicillin
CPT/HCPCS: 36415; 74430; 80053; 85025; 86886; 86900; 86901; 87081; 93005; J0330; J1100; J1170; J1940; J2175; J2250; J2270; J2405; J2704; J2765; J3010; J3490; J7030; J7060; J7120

== ENCOUNTER 2016-09-18 19:18 | Inpatient (IN) | payer OTHER ==
[~2016-09-18] VITALS: Ht 170.2 cm; Wt 57.6 kg
[2016-09-18 19:38] VITALS: BP 143/93
[2016-09-18] MEDS ORDERED: NACL 0.9% 1,000 ML IV ONE (20:06)
[2016-09-18] MEDS ORDERED: MORPHINE SULFATE 4 MG/ML SYR IVP ONE (20:10)
[2016-09-18] MEDS ORDERED: ONDANSETRON 4 MG/2 ML VIAL IVP ONE (20:10)
[2016-09-18 20:30] LABS: BASOPHILS # (AUTO) 0.3 K/uL (0.00-0.22); EOSINOPHILS # (AUTO) 0.2 K/uL (0-0.4); HEMATOCRIT 32.5 % (36-48); HEMOGLOBIN 10.4 g/dL (12.0-16.0); LYMPHOCYTES # (AUTO) 1.8 K/uL (2.5-16.5); MEAN CORPUSCULAR HEMOGLOBIN 27 pg (27-31); MEAN CORPUSCULAR HGB CONC 32 g/dL (33-37); MEAN CORPUSCULAR VOLUME 83 fL (80-94); MONOCYTES # (AUTO) 0.7 K/uL (0.8-1.0); NEUTROPHILS # (AUTO) 7.1 K/uL (1.8-7.7); PLATELET COUNT (AUTO) 376 K/uL (140-450); RED BLOOD CELL COUNT(AUTO) 3.91 MIL/uL (4.20-5.40); RED CELL DISTRIBUTION WIDTH 12.9 % (11.6-13.7); WHITE BLOOD COUNT (AUTO) 10.1 K/uL (4.8-10.8)
[2016-09-18 20:34] LABS: APPEARANCE,URINE CLEAR (CLEAR); BILIRUBIN,URINE NEGATIVE (NEGATIVE); BLOOD, URINE 3+ (NEGATIVE); COLOR,URINE YELLOW (YELLOW); LEUKOCYTE ESTERASE ,URINE 2+ (NEGATIVE); NITRITE, URINE NEGATIVE (NEGATIVE); PROTEIN,URINE 1+ (NEGATIVE); UGLUCOSE NEGATIVE (NEGATIVE); UROBILINOGEN,URINE 0.2 EU/dL (0.2 - 1)
[2016-09-18 20:43] LABS: CARBON DIOXIDE 33.1 mmol/L (21-32); POTASSIUM 3.1 mmol/L (3.5-5.1)
[2016-09-18 20:45] LABS: BACTERIA,URINE 1+ /HPF (None Seen); MUCUS,URINE 1+ /LPF (None Seen); RBC,URINE 15-30 /HPF (0-5); SQUAMOUS EPITHELIAL CELL,UR 0-3 /LPF (0-3 (FEW))
[2016-09-18 20:49] LABS: TOTAL BILIRUBIN 0.5 mg/dL (0.0-1.0); TOTAL PROTEIN, SERUM 7.5 g/dL (6.4-8.2)
[2016-09-18 20:50] LABS: INR 1.1 (0.8-1.2); PARTIAL THROMBOPLASTIN TIME 25.3 secs (22-35.6); PROTHROMBIN TIME 11.4 secs (10.8-13.4)
[2016-09-18] MEDS ORDERED: KCL 20 MEQ/WATER INJ PREMIX 100 ML IV ONE (20:55)
[2016-09-18] MEDS ORDERED: HYDROmorphone 1 MG/ML AMP IVP ONE (20:55)
[2016-09-18] MEDS ORDERED: DICYCLOMINE 20 MG/2 ML VIAL IM ONE (20:55)
[2016-09-18] MEDS ORDERED: LEVOFLOXACIN 750 MG/D5W PREMIX 150 ML IV ONE (21:25)
[2016-09-18] MEDS ORDERED: ONDANSETRON 4 MG/2 ML VIAL IVP PRN (21:45)
[2016-09-18] MEDS ORDERED: ACETAMINOPHEN 325 MG TAB PO PRN (21:45)
[2016-09-18] MEDS ORDERED: ACET-2863 PO (21:59)
[2016-09-18] MEDS: NACL 0.9% 1,000 ML IV SCH (22:29)
[2016-09-18] MEDS ORDERED: cefTRIAXone 1,000 MG VIAL ONE (23:49)
[2016-09-19 00:03] VITALS: BP 143/86
[2016-09-19] MEDS: MORPHINE SULFATE 2 MG/ML SYR IVP PRN ×5 (03:06→21:34)
[2016-09-19 06:24] LABS: CALCIUM 9.2 mg/dL (8.5-10.1)
[2016-09-19 06:35] LABS: BASOPHILS # (AUTO) 0.1 K/uL (0.00-0.22); EOSINOPHILS # (AUTO) 0.2 K/uL (0-0.4); EOSINOPHILS % (AUTO) 1.9 % (0.0-4.0); HEMATOCRIT 29.2 % (36-48); HEMOGLOBIN 9.4 g/dL (12.0-16.0); LYMPHOCYTES # (AUTO) 1.1 K/uL (2.5-16.5); LYMPHOCYTES % (AUTO) 13.5 % (20.5-51.1); MEAN CORPUSCULAR HEMOGLOBIN 26 pg (27-31); MEAN CORPUSCULAR HGB CONC 32 g/dL (33-37); MEAN CORPUSCULAR VOLUME 82 fL (80-94); MONOCYTES # (AUTO) 0.8 K/uL (0.8-1.0); NEUTROPHILS # (AUTO) 6.3 K/uL (1.8-7.7); NEUTROPHILS % (AUTO) 74.6 % (42.2-75.2); PLATELET COUNT (AUTO) 338 K/uL (140-450); RED BLOOD CELL COUNT(AUTO) 3.56 MIL/uL (4.20-5.40); RED CELL DISTRIBUTION WIDTH 12.7 % (11.6-13.7); WHITE BLOOD COUNT (AUTO) 8.5 K/uL (4.8-10.8)
[2016-09-19] MEDS: NACL 0.9% 1,000 ML IV SCH ×2 (07:41→17:41)
[2016-09-19 08:00] VITALS: BP 145/77
[2016-09-19] MEDS: ENOXAPARIN 40 MG/0.4 ML SYR SUBQ SCH (08:37)
[2016-09-19] MEDS ORDERED: POTASSIUM CHLORIDE 10 MEQ TABER PO SCH (11:35)
[2016-09-19 16:00] VITALS: BP 156/74
[2016-09-19 20:00] VITALS: BP 125/75
[2016-09-19] MEDS: POLYETHYLENE GLYCOL 17 GM/PKT PO SCH (21:00)
[2016-09-19 23:51] VITALS: BP 157/77
[2016-09-19] MEDS: HYDROmorphone 1 MG/ML AMP IVP PRN (23:55)
[2016-09-20] MEDS: NACL 0.9% 1,000 ML IV SCH (03:10)
[2016-09-20] MEDS: HYDROmorphone 1 MG/ML AMP IVP PRN ×2 (05:55→13:17)
[2016-09-20 07:30] LABS: BASOPHILS # (AUTO) 0.1 K/uL (0.00-0.22); BASOPHILS % (AUTO) 0.8 % (0.0-2.0); EOSINOPHILS # (AUTO) 0.2 K/uL (0-0.4); EOSINOPHILS % (AUTO) 2.4 % (0.0-4.0); HEMATOCRIT 29.9 % (36-48); HEMOGLOBIN 9.5 g/dL (12.0-16.0); LYMPHOCYTES # (AUTO) 1.6 K/uL (2.5-16.5); LYMPHOCYTES % (AUTO) 19.2 % (20.5-51.1); MEAN CORPUSCULAR HEMOGLOBIN 27 pg (27-31); MEAN CORPUSCULAR HGB CONC 32 g/dL (33-37); MEAN CORPUSCULAR VOLUME 84 fL (80-94); MONOCYTES # (AUTO) 0.6 K/uL (0.8-1.0); MONOCYTES % (AUTO) 7.5 % (1.7-9.3); NEUTROPHILS % (AUTO) 70.1 % (42.2-75.2); PLATELET COUNT (AUTO) 395 K/uL (140-450); RED BLOOD CELL COUNT(AUTO) 3.55 MIL/uL (4.20-5.40); RED CELL DISTRIBUTION WIDTH 12.8 % (11.6-13.7); WHITE BLOOD COUNT (AUTO) 8.5 K/uL (4.8-10.8)
[2016-09-20 08:00] VITALS: BP 125/90
[2016-09-20 08:04] LABS: ALBUMIN 2.7 g/dL (3.4-5.0); ANION GAP 8.1 (8-16); CALCIUM 9.5 mg/dL (8.5-10.1); CARBON DIOXIDE 31.1 mmol/L (21-32); POTASSIUM 3.2 mmol/L (3.5-5.1); TOTAL BILIRUBIN 0.4 mg/dL (0.0-1.0); TOTAL PROTEIN, SERUM 7.5 g/dL (6.4-8.2)
[2016-09-20] MEDS: POLYETHYLENE GLYCOL 17 GM/PKT PO SCH ×2 (09:03→20:09)
[2016-09-20] MEDS: ENOXAPARIN 40 MG/0.4 ML SYR SUBQ SCH (09:07)
[2016-09-20] MEDS: HYDROcodone/APAP 5/325 MG 1 TAB TAB PO PRN ×4 (09:57→20:09)
[2016-09-20] MEDS ORDERED: POTASSIUM CHLORIDE 10 MEQ TABER PO SCH (13:30)
[2016-09-20 16:00] VITALS: BP 143/92
[2016-09-20 20:00] VITALS: BP 158/90
[2016-09-21 00:30] VITALS: BP 169/92
[2016-09-21] MEDS: HYDROcodone/APAP 5/325 MG 1 TAB TAB PO PRN ×5 (00:32→20:26)
[2016-09-21 05:34] LABS: BASOPHILS # (AUTO) 0.3 K/uL (0.00-0.22); BASOPHILS % (AUTO) 3.9 % (0.0-2.0); EOSINOPHILS # (AUTO) 0.2 K/uL (0-0.4); EOSINOPHILS % (AUTO) 2.4 % (0.0-4.0); HEMATOCRIT 31.4 % (36-48); HEMOGLOBIN 9.7 g/dL (12.0-16.0); LYMPHOCYTES # (AUTO) 2.6 K/uL (2.5-16.5); LYMPHOCYTES % (AUTO) 29.7 % (20.5-51.1); MEAN CORPUSCULAR HEMOGLOBIN 26 pg (27-31); MEAN CORPUSCULAR HGB CONC 31 g/dL (33-37); MEAN CORPUSCULAR VOLUME 84 fL (80-94); MONOCYTES # (AUTO) 0.4 K/uL (0.8-1.0); MONOCYTES % (AUTO) 4.9 % (1.7-9.3); NEUTROPHILS # (AUTO) 5.2 K/uL (1.8-7.7); NEUTROPHILS % (AUTO) 59.1 % (42.2-75.2); PLATELET COUNT (AUTO) 470 K/uL (140-450); RED BLOOD CELL COUNT(AUTO) 3.75 MIL/uL (4.20-5.40); RED CELL DISTRIBUTION WIDTH 12.8 % (11.6-13.7); WHITE BLOOD COUNT (AUTO) 8.7 K/uL (4.8-10.8)
[2016-09-21 06:04] LABS: ALBUMIN 3.1 g/dL (3.4-5.0); ANION GAP 13.1 (8-16); CALCIUM 9.8 mg/dL (8.5-10.1); CARBON DIOXIDE 30.4 mmol/L (21-32); CREATININE 1.1 mg/dL (0.6-1.3); POTASSIUM 3.5 mmol/L (3.5-5.1); TOTAL BILIRUBIN 0.4 mg/dL (0.0-1.0); TOTAL PROTEIN, SERUM 7.5 g/dL (6.4-8.2)
[2016-09-21 07:56] VITALS: BP 144/71
[2016-09-21] MEDS: POLYETHYLENE GLYCOL 17 GM/PKT PO SCH ×2 (09:00→20:37)
[2016-09-21] MEDS: ENOXAPARIN 40 MG/0.4 ML SYR SUBQ SCH (09:15)
[2016-09-21] MEDS ORDERED: NACL 0.9% 500 ML IV SCH (15:50)
[2016-09-21 16:00] VITALS: BP 147/84
[2016-09-21] MEDS: HYDROmorphone 1 MG/ML AMP IVP PRN ×2 (16:51→22:44)
[2016-09-21] MEDS: NACL 0.9% 1,000 ML IV SCH (17:36)
[2016-09-21 20:00] VITALS: BP 135/73
[2016-09-21] MEDS ORDERED: cefTRIAXone 1,000 MG VIAL ONE (22:17)
[2016-09-22] VITALS: BP 130/68
[2016-09-22] MEDS: NACL 0.9% 1,000 ML IV SCH ×3 (00:05→21:55)
[2016-09-22] MEDS: HYDROcodone/APAP 5/325 MG 1 TAB TAB PO PRN ×3 (01:38→13:54)
[2016-09-22] MEDS: HYDROmorphone 1 MG/ML AMP IVP PRN ×5 (04:43→23:00)
[2016-09-22 05:56] LABS: BASOPHILS # (AUTO) 0.1 K/uL (0.00-0.22); BASOPHILS % (AUTO) 1.5 % (0.0-2.0); EOSINOPHILS # (AUTO) 0.2 K/uL (0-0.4); EOSINOPHILS % (AUTO) 1.8 % (0.0-4.0); HEMOGLOBIN 10.4 g/dL (12.0-16.0); LYMPHOCYTES # (AUTO) 1.8 K/uL (2.5-16.5); MEAN CORPUSCULAR HEMOGLOBIN 27 pg (27-31); MEAN CORPUSCULAR HGB CONC 32 g/dL (33-37); MEAN CORPUSCULAR VOLUME 83 fL (80-94); MONOCYTES # (AUTO) 0.9 K/uL (0.8-1.0); MONOCYTES % (AUTO) 10.2 % (1.7-9.3); NEUTROPHILS # (AUTO) 5.8 K/uL (1.8-7.7); NEUTROPHILS % (AUTO) 66.5 % (42.2-75.2); PLATELET COUNT (AUTO) 433 K/uL (140-450); RED BLOOD CELL COUNT(AUTO) 3.88 MIL/uL (4.20-5.40); RED CELL DISTRIBUTION WIDTH 12.9 % (11.6-13.7); WHITE BLOOD COUNT (AUTO) 8.8 K/uL (4.8-10.8)
[2016-09-22 06:10] LABS: ALBUMIN 3.2 g/dL (3.4-5.0); ANION GAP 11.7 (8-16); CALCIUM 9.7 mg/dL (8.5-10.1); CARBON DIOXIDE 30.5 mmol/L (21-32); CREATININE 1.3 mg/dL (0.6-1.3); POTASSIUM 3.2 mmol/L (3.5-5.1); TOTAL BILIRUBIN 0.4 mg/dL (0.0-1.0); TOTAL PROTEIN, SERUM 7.8 g/dL (6.4-8.2)
[2016-09-22 08:00] VITALS: BP 145/92
[2016-09-22] MEDS: ENOXAPARIN 40 MG/0.4 ML SYR SUBQ SCH (09:21)
[2016-09-22] MEDS: POLYETHYLENE GLYCOL 17 GM/PKT PO SCH ×2 (09:21→20:12)
[2016-09-22 16:00] VITALS: BP 137/75
[2016-09-22 20:00] VITALS: BP 146/88
[2016-09-22] MEDS: MORPHINE TAB ER 30 MG TABER PO SCH ×2 (20:12→21:48)
[2016-09-23 00:01] VITALS: BP 160/91
[2016-09-23] MEDS: HYDROmorphone 1 MG/ML AMP IVP PRN ×3 (03:26→12:41)
[2016-09-23] MEDS: NACL 0.9% 1,000 ML IV SCH (04:14)
[2016-09-23 08:00] VITALS: BP 141/82
[2016-09-23] MEDS: ENOXAPARIN 40 MG/0.4 ML SYR SUBQ SCH (08:41)
[2016-09-23] MEDS: POLYETHYLENE GLYCOL 17 GM/PKT PO SCH (08:41)
[2016-09-23 10:23] LABS: EOSINOPHILS # (AUTO) 0.3 K/uL (0-0.4); MONOCYTES # (AUTO) 0.5 K/uL (0.8-1.0)
[2016-09-23 10:28] LABS: BASOPHILS # (AUTO) 0.4 K/uL (0.00-0.22); BASOPHILS % (AUTO) 4.2 % (0.0-2.0); EOSINOPHILS % (AUTO) 2.6 % (0.0-4.0); LYMPHOCYTES # (AUTO) 1.8 K/uL (2.5-16.5); LYMPHOCYTES % (AUTO) 17.7 % (20.5-51.1); MEAN CORPUSCULAR HEMOGLOBIN 26 pg (27-31); MEAN CORPUSCULAR HGB CONC 31 g/dL (33-37); MEAN CORPUSCULAR VOLUME 84 fL (80-94); MONOCYTES % (AUTO) 5.1 % (1.7-9.3); NEUTROPHILS # (AUTO) 7.4 K/uL (1.8-7.7); NEUTROPHILS % (AUTO) 70.4 % (42.2-75.2); PLATELET COUNT (AUTO) 499 K/uL (140-450); RED BLOOD CELL COUNT(AUTO) 3.81 MIL/uL (4.20-5.40); RED CELL DISTRIBUTION WIDTH 13.2 % (11.6-13.7); WHITE BLOOD COUNT (AUTO) 10.4 K/uL (4.8-10.8)
[2016-09-23 10:38] LABS: ALBUMIN 3.5 g/dL (3.4-5.0); ANION GAP 11.4 (8-16); CALCIUM 9.4 mg/dL (8.5-10.1); CARBON DIOXIDE 30.9 mmol/L (21-32); CREATININE 1.2 mg/dL (0.6-1.3); POTASSIUM 3.3 mmol/L (3.5-5.1); TOTAL BILIRUBIN 0.3 mg/dL (0.0-1.0); TOTAL PROTEIN, SERUM 7.6 g/dL (6.4-8.2)
[2016-09-23] MEDS ORDERED: POTASSIUM CHLORIDE 10 MEQ TABER PO SCH (14:11)
[2016-09-23] MEDS: MORPHINE TAB ER 30 MG TABER PO SCH (15:00)
== END 2016-09-23 15:45 | disposition home or self-care (01) | DRG 463 ==
LOC: MED 19:19 → MTU 21:46
PROVIDERS: ADMIT Hospitalist; ATTEND Hospitalist
DX: N12 Tubulo-interstitial nephritis, not specified as acute or chronic (principal); N13.30 Unspecified hydronephrosis; Z88.0 Allergy status to penicillin; Z90.710 Acquired absence of both cervix and uterus
CPT/HCPCS: 36415; 71260; 76770; 80048; 80053; 81001; 83605; 83690; 83735; 85025; 85610; 85730; 86886; 86900; 86901; 87040; 87081; 87086; 96361; 96365; 96372; 96375; 99285; J0500; J0696; J1170; J1650; J1956; J2270; J2405; J3480; J7030; J7060; Q0092; Q9967